=== PATIENT | male | born 1985 ===

== ENCOUNTER 2021-12-25 20:05 | Emergency (ER) | payer SELFPAY ==
[~2021-12-25] VITALS: Ht 195.6 cm; Wt 78.0 kg
[2021-12-25 21:19] LABS: HEMATOCRIT 43.6 % (39.0-50.0); HEMOGLOBIN 14.5 g/dl (14.0-18.0); IMMATURE GRANULOCYTES 0.2 % (0.0-5.0); MEAN CELL VOLUME 95.6 fL CALC (80.0-100.0); MEAN CORPUSCULAR HGB 31.8 pG CALC (26.0-32.0); MEAN CORPUSCULAR HGB CONC 33.3 g/dL CAL (32.0-36.0); NEUT# 6.7 thou/uL (1.82-7.42); RED BLOOD COUNT 4.56 mill/uL (4.70-6.10); RED CELL DISTRI WIDTH 12.3 % (11.5-15.5)
[2021-12-25 21:22] LABS: URINE BILIRUBIN - DIPSTICK NEGATIVE (NEGATIVE); URINE BLOOD DIPSTICK NEGATIVE (NEGATIVE); URINE COLOR YELLOW; URINE GLUCOSE - DIPSTICK NEGATIVE (NEGATIVE); URINE KETONE NEGATIVE (NEGATIVE); URINE LEUK ESTERASE NEGATIVE (NEGATIVE); URINE PROTEIN - DIPSTICK NEGATIVE (NEG-TRACE); URINE SPECIFIC GRAVITY <=1.005; URINE UROBILINOGEN - DIPSTICK 0.2 E.U./dL (0.2)
[2021-12-25 21:23] LABS: URINE NITRITE - DIPSTICK NEGATIVE (Negative)
[2021-12-25 21:37] LABS: ACT PARTIAL THROMBO TIME 25.9 SECONDS (20.0-32.5); PROTHROMBIN TIME 10.4 SECONDS (9.0-12.5)
[2021-12-25 21:40] LABS: ALKALINE PHOSPHATASE 59 u/l (38-126); BILIRUBIN, TOTAL 0.5 mg/dL (0.0-1.4); BUN 8 mg/dL (9-20); BUN/CREATININE RATIO 9 (12-20 (CALC)); CARBON DIOXIDE 26 mmol/l (22-30); CHLORIDE 95 mmol/l (95-108); CREATININE 0.9 mg/dL (0.7-1.3); ETHYL ALCOHOL 258 mg/dl (0-30); GFR > 60 ML/MIN (>=60 (CALC)); GFR FOR AFR.AMER. > 60 ML/MIN (>=60 (CALC)); LIPASE 105 u/l (23-300); SGOT/AST 43 u/l (17-59); TOTAL PROTEIN 8.4 g/dL (6.3-8.2)
[2021-12-25 21:41] LABS: ANION GAP 21 (6-22 (CALC)); SODIUM 138 mmol/l (137-146)
[2021-12-25] MEDS ORDERED: KEFLEX500 MG PO (23:20)
[2021-12-25 23:37] VITALS: BP 142/78
== END 2021-12-25 23:45 | disposition home or self-care (01) | DRG 605 ==
LOC: ED 20:05
PROC: 0HQ0XZZ Repair Scalp Skin, External Approach (ICD-10-PCS; principal; 2021-12-25)
DX: S01.01XA Laceration without foreign body of scalp, initial encounter (principal); F10.129 Alcohol abuse with intoxication, unspecified; F17.200 Nicotine dependence, unspecified, uncomplicated; V48.5XXA Car driver injured in noncollision transport accident in traffic accident, initial encounter

== ENCOUNTER 2022-01-12 21:02 | Emergency (ER) | payer SELFPAY ==
[~2022-01-12] VITALS: Ht 195.6 cm; Wt 79.0 kg
[~2022-01-12 21:02] MED LIST: KEFLEX500 MG PO
[2022-01-12 21:50] LABS: HEMATOCRIT 40.7 % (39.0-50.0); HEMOGLOBIN 13.8 g/dl (14.0-18.0); IMMATURE GRANULOCYTES 0.2 % (0.0-5.0); MEAN CELL VOLUME 95.3 fL CALC (80.0-100.0); MEAN CORPUSCULAR HGB 32.3 pG CALC (26.0-32.0); MEAN CORPUSCULAR HGB CONC 33.9 g/dL CAL (32.0-36.0); NEUT# 10.63 thou/uL (1.82-7.42); RED BLOOD COUNT 4.27 mill/uL (4.70-6.10); RED CELL DISTRI WIDTH 12.2 % (11.5-15.5)
[2022-01-12 22:05] LABS: ALKALINE PHOSPHATASE 86 u/l (38-126); AMYLASE 74 u/l (30-110); ANION GAP 14 (6-22 (CALC)); BILIRUBIN, TOTAL 0.7 mg/dL (0.0-1.4); BUN 17 mg/dL (9-20); BUN/CREATININE RATIO 14 (12-20 (CALC)); CARBON DIOXIDE 27 mmol/l (22-30); CHLORIDE 102 mmol/l (95-108); CREATININE 1.2 mg/dL (0.7-1.3); GFR > 60 ML/MIN (>=60 (CALC)); GFR FOR AFR.AMER. > 60 ML/MIN (>=60 (CALC)); LIPASE 60 u/l (23-300); POTASSIUM 3.8 mmol/l (3.5-5.1); SGOT/AST 40 u/l (17-59); SODIUM 140 mmol/l (137-146)
[2022-01-13 00:36] LABS: URINE BILIRUBIN - DIPSTICK NEGATIVE (NEGATIVE); URINE BLOOD DIPSTICK LARGE (NEGATIVE); URINE COLOR YELLOW; URINE GLUCOSE - DIPSTICK NEGATIVE (NEGATIVE); URINE KETONE TRACE mg/dL (NEGATIVE); URINE LEUK ESTERASE NEGATIVE (NEGATIVE); URINE NITRITE - DIPSTICK POSITIVE (Negative); URINE PROTEIN - DIPSTICK 100 mg/dL (NEG-TRACE); URINE SPECIFIC GRAVITY >=1.030; URINE UROBILINOGEN - DIPSTICK 0.2 E.U./dL (0.2)
[2022-01-13] MEDS ORDERED: LORTAB5 PO (00:39)
[2022-01-13] MEDS ORDERED: TAMSULOSIN0.4 MG PO (00:39)
[2022-01-13 00:42] LABS: URINE RBC 25-50 RBC/hpf (0-5)
[2022-01-13 00:43] LABS: URINE BACTERIA FEW hpf; URINE CALCIUM OXALATE CRYSTALS FEW lpf; URINE SQUAMOUS EPITHELIAL CELL FEW EPI/hpf (0-FEW)
[2022-01-13 00:45] VITALS: BP 138/75
== END 2022-01-13 00:51 | disposition home or self-care (01) | DRG 694 ==
LOC: ED 21:02
PROVIDERS: Family Medicine
DX: N13.2 Hydronephrosis with renal and ureteral calculous obstruction (principal); F17.210 Nicotine dependence, cigarettes, uncomplicated
CPT/HCPCS: S0164